=== PATIENT | female | born 1935 | race American Indian/Alaskan Native ===

== ENCOUNTER 2017-01-01 15:19 | Emergency (ER) | payer MEDICARE ==
[2017-01-01 19:12] LABS: Basophils % (Auto) 0.9 % (0.0-1.8); Eosinophils % (Auto) 1.1 % (0.0-4.3); Hematocrit 32.5 % (30.3-42.9); Hemoglobin 10.1 gm/dl (10.1-14.3); Mean Corpuscular HGB Conc 31 % (30-34); Mean Corpuscular Hemoglobin 27 pg (28-32); Mean Corpuscular Volume 85 fl (79-97); Platelet Count 303 K/mm3 (140-440); Red Blood Count 3.82 M/mm3 (3.65-5.03); Red Cell Distribution Width 15.3 % (13.2-15.2); White Blood Count 5.5 K/mm3 (4.5-11.0)
[2017-01-01 19:35] LABS: Bacteria,Urine 1+ /HPF (Negative); Bilirubin,Urine NEG (Negative); Blood,Urine NEG (Negative); Ketones,Urine NEG (Negative); Leukocyte Esterase,Urine NEG (Negative); Mucus,Urine FEW /HPF; Nitrite,Urine NEG (Negative); Urobilinogen,Urine < 2.0 mg/dL (<2.0)
[2017-01-01 19:48] LABS: BUN/Creatinine Ratio 15.41; Calcium 9.6 mg/dL (8.4-10.2); Chloride 101.5 mmol/L (98-107); Potassium 4.2 mmol/L (3.6-5.0)
[2017-01-01 21:49] LABS: Albumin 4.1 g/dL (3.9-5); Albumin/Globulin Ratio 1.5 %; Bilirubin,Total 0.4 mg/dL (0.1-1.2); Calcium 9.6 mg/dL (8.4-10.2); Chloride 100.7 mmol/L (98-107); Potassium 4.2 mmol/L (3.6-5.0); Total Protein 6.8 g/dL (6.3-8.2)
[2017-01-01] MEDS ORDERED: ZOFRAN IV ONE (21:50)
[2017-01-01] MEDS ORDERED: NACL 0.9% 1000 ML 1,000 ML IV ONE (21:50)
--- NOTE | 2017-01-01 22:36 | Emergency Department Report ---
ED N/V/D HPI - General Chief complaint: Nausea/Vomiting/Diarrhea Stated complaint: NAUSEA/VOMITING Time Seen by Provider: 01/01/17 21:15 Source: patient Mode of arrival: Ambulatory Limitations: No Limitations - History of Present Illness Initial comments: 81 year female with a past medical history of gouty arthritis, diabetes, GERD, hypertension, elevated cholesterol, and chronic renal insufficiency presents to the hospital complaints of nausea and vomiting since this morning. Patient has had greater several episodes of nonbilious, nonbloody vomitus. Patient denies diarrhea, abdominal pain, chest pain, fever, melena, hematochezia, or hematemesis. Mild dysuria reported. Patient unable to eat or drink today due to symptoms. PMD Dr. Vega rim roller operator: Dr. Wilder - Related Data Home Medications Medication Instructions Recorded Confirmed Last Taken Cilostazol [Pletal] 100 mg PO BID 11/30/14 01/01/17 12/31/16 Doxazosin [Cardura] 4 mg PO QDAY 11/30/14 01/01/17 12/31/16 Meloxicam [Mobic] 15 mg PO QDAY 11/30/14 01/01/17 12/31/16 Pravastatin Sodium [Pravastatin] 80 mg PO QHS 11/30/14 01/01/17 12/31/16 Valsartan [Diovan] 320 mg PO QDAY 11/30/14 01/01/17 12/31/16 Verapamil ER [Calan SR] 240 mg PO QDAY 11/30/14 01/01/17 12/31/16 traMADol [Ultram 50 MG tab] 50 mg PO Q8H PRN 11/30/14 01/01/17 12/31/16 Previous Rx's Medication Instructions Recorded Last Taken Type Diazepam Tab [Valium] 2 mg PO TID PRN #10 tablet 11/30/14 12/31/16 Rx HYDROcodone/APAP 5-325 [[place] 1 - 2 each PO Q4-6H PRN #20 tablet 12/21/14 Rx 5-325 mg TAB] Ibuprofen [Motrin 800 MG tab] 800 mg PO Q8HR PRN #20 tablet 12/21/14 12/31/16 Rx Ondansetron [Zofran Odt] 4 mg PO Q8HR PRN #20 tab.rapdis 01/01/17 Unknown Rx Allergies Allergy/AdvReac Type Severity Reaction Status Date / Time No Known Allergies Allergy Verified 01/01/17 22:10 ED Review of Systems ROS: Stated complaint: NAUSEA/VOMITING Other details as noted in HPI Comment: All other systems reviewed and negative Other: Constitutional: No fevers chills Eyes: No eye pain visual changes ENT: No ear pain or throat pain Neck: Denies pain Respiratory: Denies cough wheezing shortness of breath Cardiovascular: Denies chest pain, palpitations, syncope GI: Denies abdominal pain, diarrhea : mild dysuria Musculoskeletal: Denies back pain Skin: Denies rash, lesions, erythema Neurologic: Denies headache, numbness, weakness Psychiatric: Denies suicidal ideation, hallucinations ED Past Medical Hx - Past Medical History Previous Medical History?: Yes Hx Hypertension: Yes (30YRS) Hx Diabetes: Yes Hx GERD: Yes Hx Renal Disease: Yes (renal insufficiency) Hx Arthritis: Yes Additional medical history: gout, high cholesterol - Surgical History Past Surgical History?: Yes Additional Surgical History: 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 - Social History Smoking Status: Never Smoker Substance Use Type: None - Medications Home Medications: Home Medications Medication Instructions Recorded Confirmed Last Taken Type Cilostazol [Pletal] 100 mg PO BID 11/30/14 01/01/17 12/31/16 History Diazepam Tab [Valium] 2 mg PO TID PRN #10 tablet 11/30/14 01/01/17 12/31/16 Rx Doxazosin [Cardura] 4 mg PO QDAY 11/30/14 01/01/17 12/31/16 History Meloxicam [Mobic] 15 mg PO QDAY 11/30/14 01/01/17 12/31/16 History Pravastatin Sodium [Pravastatin] 80 mg PO QHS 11/30/14 01/01/17 12/31/16 History Valsartan [Diovan] 320 mg PO QDAY 11/30/14 01/01/17 12/31/16 History Verapamil ER [Calan SR] 240 mg PO QDAY 11/30/14 01/01/17 12/31/16 History traMADol [Ultram 50 MG tab] 50 mg PO Q8H PRN 11/30/14 01/01/17 12/31/16 History HYDROcodone/APAP 5-325 [[place] 1 - 2 each PO Q4-6H PRN #20 tablet 12/21/1412/31/16 Rx 5-325 mg TAB] Ibuprofen [Motrin 800 MG tab] 800 mg PO Q8HR PRN #20 tablet 12/21/14 01/01/17 Rx Ondansetron [Zofran Odt] 4 mg PO Q8HR PRN #20 tab.rapdis 01/01/17 Unknown Rx ED Physical Exam - General Limitations: No Limitations - Other Other exam information: General: No limitations, patient is alert in no acute distress Head exam: Atraumatic, normocephalic Eyes exam: Normal appearance, pupils equal reactive to light, extraocular movements intact ENT: Moist mucous membrane, normal oropharynx Neck exam: Normal inspection, full range of motion, no meningismus nontender Respiratory exam: Clear to auscultation bilateral, no wheezes, rales, crackles Cardiovascular: Normal rate and rhythm, normal heart sounds Abdomen: Soft, nondistended, and nontender, with normal bowel sounds, no rebound, or guarding Extremity: Full range of motion normal inspection no deformity Back: Normal Inspection, full range of motion, no tenderness Neurologic: Alert, oriented x3, cranial nerves intact, no motor or sensory deficit Psychiatric: normal affect, normal mood Skin: Warm, dry, intact ED Course Vital Signs 01/01/17 01/01/17 01/01/17 18:39 22:00 23:00 Temperature 98.3 F Pulse Rate 76 62 96 H Respiratory 16 18 16 Rate Blood Pressure 142/76 Blood Pressure 135/62 164/74 [Right] O2 Sat by Pulse 99 100 98 Oximetry - Reevaluation(s) Reevaluation #1: 01/02/17 00:12 Patient tolerated by mouth intake. - Consultations Consultation #1: 01/01/17 23:01 Case discussed with rim roller operator Dr [place] partner of Dr. Wilder. If patient' s symptoms improve will be discharged with copy of labs for f/u ED Medical Decision Making - Lab Data Result diagrams: 01/01/17 18:48 01/01/17 18:48 Lab Results 01/01/17 01/01/17 01/01/17 Range/Units 18:48 18:48 18:48 WBC 5.5 (4.5-11.0) K/mm3 RBC 3.82 (3.65-5.03) M/mm3 Hgb 10.1 (10.1-14.3) gm/dl Hct 32.5 (30.3-42.9) % MCV 85 (79-97) fl MCH 27 L (28-32) pg MCHC 31 (30-34) % RDW 15.3 H (13.2-15.2) % Plt Count 303 (140-440) K/mm3 Lymph % (Auto) 18.8 (13.4-35.0) % Park % (Auto) 13.8 H (0.0-7.3) % Eos % (Auto) 1.1 (0.0-4.3) % Baso % (Auto) 0.9 (0.0-1.8) % Lymph # 1.0 L (1.2-5.4) K/mm3 Park # 0.8 (0.0-0.8) K/mm3 Eos # 0.1 (0.0-0.4) K/mm3 Baso # 0.1 (0.0-0.1) K/mm3 Seg Neutrophils % 65.4 (40.0-70.0) % Seg Neutrophils # 3.6 (1.8-7.7) K/mm3 Sodium 142 141 (137-145) mmol/L Potassium 4.2 4.2 (3.6-5.0) mmol/L Chloride 101.5 100.7 (98-107) mmol/L Carbon Dioxide 22 20 L (22-30) mmol/L Anion Gap 23 25 mmol/L BUN 37 H 36 H (7-17) mg/dL Creatinine 2.4 H 2.4 H (0.7-1.2) mg/dL Estimated GFR 23 23 ml/min BUN/Creatinine Ratio 15.41 15.00 % Glucose 107 H 106 H (65-100) mg/dL Calcium 9.6 9.6 (8.4-10.2) mg/dL Total Bilirubin 0.40 (0.1-1.2) mg/dL AST 14 (5-40) units/L ALT 6 L (7-56) units/L Alkaline Phosphatase 113 (35-129) units/L Total Creatine Kinase (30-135) units/L CK-MB (CK-2) (0.0-4.0) ng/mL CK-MB (CK-2) Rel Index (0-4) Troponin T (0.00-0.029) ng/mL Total Protein 6.8 (6.3-8.2) g/dL Albumin 4.1 (3.9-5) g/dL Albumin/Globulin Ratio 1.5 % Lipase 25 (13-60) units/L Urine Color (Yellow) Urine Turbidity (Clear) Urine pH (5.0-7.0) Ur Specific [place] (1.003-1.030) Urine Protein (Negative) mg/dL Urine Glucose (UA) (Negative) mg/dL Urine Ketones (Negative) mg/dL Urine Blood (Negative) Urine Nitrite (Negative) Urine Bilirubin (Negative) Urine Urobilinogen (<2.0) mg/dL Ur Leukocyte Esterase (Negative) Urine WBC (Auto) (0.0-6.0) /HPF Urine RBC (Auto) (0.0-6.0) /HPF U Epithel Cells (Auto) (0-13.0) /HPF Urine Bacteria (Auto) (Negative) /HPF Urine Mucus /HPF 01/01/17 01/01/17 Range/Units 18:48 19:07 WBC (4.5-11.0) K/mm3 RBC (3.65-5.03) M/mm3 Hgb (10.1-14.3) gm/dl Hct (30.3-42.9) % MCV (79-97) fl MCH (28-32) pg MCHC (30-34) % RDW (13.2-15.2) % Plt Count (140-440) K/mm3 Lymph % (Auto) (13.4-35.0) % Park % (Auto) (0.0-7.3) % Eos % (Auto) (0.0-4.3) % Baso % (Auto) (0.0-1.8) % Lymph # (1.2-5.4) K/mm3 Park # (0.0-0.8) K/mm3 Eos # (0.0-0.4) K/mm3 Baso # (0.0-0.1) K/mm3 Seg Neutrophils % (40.0-70.0) % Seg Neutrophils # (1.8-7.7) K/mm3 Sodium (137-145) mmol/L Potassium (3.6-5.0) mmol/L Chloride (98-107) mmol/L Carbon Dioxide (22-30) mmol/L Anion Gap mmol/L BUN (7-17) mg/dL Creatinine (0.7-1.2) mg/dL Estimated GFR ml/min BUN/Creatinine Ratio % Glucose (65-100) mg/dL Calcium (8.4-10.2) mg/dL Total Bilirubin (0.1-1.2) mg/dL AST (5-40) units/L ALT (7-56) units/L Alkaline Phosphatase (35-129) units/L Total Creatine Kinase 80 (30-135) units/L CK-MB (CK-2) 2.0 (0.0-4.0) ng/mL CK-MB (CK-2) Rel Index 2.5 (0-4) Troponin T < 0.010 (0.00-0.029) ng/mL Total Protein (6.3-8.2) g/dL Albumin (3.9-5) g/dL Albumin/Globulin Ratio % Lipase (13-60) units/L Urine Color Yellow (Yellow) Urine Turbidity Clear (Clear) Urine pH 5.0 (5.0-7.0) Ur Specific [place] 1.012 (1.003-1.030) Urine Protein 100 mg/dl (Negative) mg/dL Urine Glucose (UA) Neg (Negative) mg/dL Urine Ketones Neg (Negative) mg/dL Urine Blood Neg (Negative) Urine Nitrite Neg (Negative) Urine Bilirubin Neg (Negative) Urine Urobilinogen < 2.0 (<2.0) mg/dL Ur Leukocyte Esterase Neg (Negative) Urine WBC (Auto) 1.0 (0.0-6.0) /HPF Urine RBC (Auto) 2.0 (0.0-6.0) /HPF U Epithel Cells (Auto) 2.0 (0-13.0) /HPF Urine Bacteria (Auto) 1+ (Negative) /HPF Urine Mucus Few /HPF - EKG Data -: EKG Interpreted by Me (sinus rate 71 right bundle branch block, septal infarct age indeterminate) - EKG Data When compared to previous EKG there are: previous EKG unavailable - Medical Decision Making Patient has chronic renal insufficiency. Other there maysee labs and UA are unremarkable. Patient tolerating by mouth intake after receiving 1 dose of Zofran and no vomiting in the department. She feels better after receiving 1 L of normal saline. She'll be discharged home with outpatient PMD and nephrology follow-up. She was provided a copy of labs to take to her doctor - Differential Diagnosis gastritis, pancreatitis, cholecystitis, UTI, MD, dehydration Critical Care Time: No Critical care attestation.: If time is entered above; I have spent that time in minutes in the direct care of this critically ill patient, excluding procedure time. ED Disposition Clinical Impression: Vomiting, HTN (hypertension), Chronic renal insufficiency Disposition: TO HOME OR SELFCARE Is pt being admited?: No Does the pt Need Aspirin: No Condition: Stable Instructions: Acute Nausea and Vomiting (ED), Hypertension (ED), Impaired Kidney Function (ED) Additional Instructions: Take the medications as prescribed. To the copy for the last provided to your primary care doctor in kidney specialist. Return if symptoms worsen. Prescriptions: Ondansetron [Zofran Odt] 4 mg PO Q8HR PRN #20 tab.rapdis PRN Reason: Nausea And Vomiting Referrals: PRIMARY CARE, [Primary Care Provider] - 3-5 Days KLUWANT WILDER MD [Staff Physician] - 3-5 Days (rim roller operator) Time of Disposition: 00:13
[2017-01-01 22:58] LABS: Creatine Kinase 80 units/L (30-135)
[2017-01-02 00:34] VITALS: BP 150/61
== END 2017-01-02 00:35 | disposition home or self-care (01) ==
LOC: ED 15:19
DX: R11.2 Nausea with vomiting, unspecified (principal); E11.22 Type 2 diabetes mellitus with diabetic chronic kidney disease; I12.9 Hypertensive chronic kidney disease with stage 1 through stage 4 chronic kidney disease, or unspecified chronic kidney disease; N18.9 Chronic kidney disease, unspecified; K21.9 Gastro-esophageal reflux disease without esophagitis; M19.90 Unspecified osteoarthritis, unspecified site; M10.9 Gout, unspecified; E78.00 Pure hypercholesterolemia, unspecified
CPT/HCPCS: 36415; 80048; 80053; 81001; 82550; 82553; 83690; 84484; 85025; 93005; 93010; 96361; 96374; 99284; J2405; J7030

== ENCOUNTER 2017-06-06 14:50 | Emergency (ER) | payer MEDICARE ==
[2017-06-06 15:34] VITALS: BP 173/81
[2017-06-06] MEDS ORDERED: ULTRAM PO ONE (16:32)
--- NOTE | 2017-06-06 16:32 | Emergency Department Report ---
Blank Doc - Documentation Documentation: Patient is a 81-year-old asthmatic female past history of significant for arthritis with presenting with left hip pain. Patient states that she did not fall. Pain is been there for approximately 2 days this stop her from being able to walk well. Patient denies any rash in this area. X-ray of the left hip will be performed. She'll be reassessed.
--- NOTE | 2017-06-06 17:42 | Emergency Department Report ---
HPI - General Chief Complaint: Extremity Problem,Nontraumatic Time Seen by Provider: 06/06/17 16:28 - HPI HPI: Patient is a 81-year-old asthmatic female past history of significant for arthritis with presenting with left hip pain. Patient states that she did not fall. Pain is been there for approximately 2 days this stop her from being able to walk well. Patient denies any rash in this area. 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 - Social History Smoking Status: Never Smoker Substance Use Type: None - Medications Home Medications: Home Medications Medication Instructions Recorded Confirmed Last Taken Type Cilostazol [Pletal] 100 mg PO BID 11/30/14 01/01/17 12/31/16 History Diazepam Tab [Valium] 2 mg PO TID PRN #10 tablet 11/30/14 01/01/17 12/31/16 Rx Doxazosin [Cardura] 4 mg PO QDAY 11/30/14 01/01/17 12/31/16 History Pravastatin Sodium [Pravastatin] 80 mg PO QHS 11/30/14 01/01/17 12/31/16 History Valsartan [Diovan] 320 mg PO QDAY 11/30/14 01/01/17 12/31/16 History Verapamil ER [[place]an SR] 240 mg PO QDAY 11/30/14 01/01/17 12/31/16 History HYDROcodone/APAP 5-325 [[place] 1 - 2 each PO Q4-6H PRN #20 tablet 12/21/1412/31/16 Rx 5-325 mg TAB] Ibuprofen [Motrin 800 MG tab] 800 mg PO Q8HR PRN #20 tablet 12/21/14 01/01/17 Rx Ondansetron [Zofran Odt] 4 mg PO Q8HR PRN #20 tab.rapdis 01/01/17 Unknown Rx Meloxicam [Mobic] 15 mg PO QDAY #20 tablet 06/06/17 Unknown Rx traMADol [Ultram 50 MG tab] 50 mg PO Q8H PRN #20 tablet 06/06/17 Unknown Rx ED Review of Systems ROS: Stated complaint: L HIP PAIN Other details as noted in HPI Constitutional: denies: chills, fever Eyes: denies: eye pain, eye discharge, vision change ENT: denies: ear pain, throat pain Respiratory: denies: cough, shortness of breath, wheezing Cardiovascular: denies: chest pain, palpitations Endocrine: no symptoms reported Gastrointestinal: denies: abdominal pain, nausea, diarrhea Genitourinary: denies: urgency, dysuria, discharge Musculoskeletal: denies: back pain, joint swelling, arthralgia Skin: denies: rash, lesions Neurological: denies: headache, weakness, paresthesias Psychiatric: denies: anxiety, depression Hematological/Lymphatic: denies: easy bleeding, easy bruising Physical Exam - Physical Exam Vital Signs: Vital Signs 06/06/17 15:28 Temperature 98.5 F Pulse Rate 89 Respiratory 16 Rate Blood Pressure 173/81 O2 Sat by Pulse 99 Oximetry Physical Exam: GENERAL: Alert and oriented x3, no apparent distress, Normal Gait, atraumatic. HEAD: Head is normocephalic and a-traumatic. LUNGS: Symetrical with respiration, No wheezing, no rales or crackles, CTAB. HEART: S1, S2 present, regular rate and rhythm without murmur, no rubs, no gallops. Non tender to palpation ABDOMEN: No organomegaly was noted,Positive bowel sounds, soft, and non- distended. . Nontender to palpation on all Quadrants, NO CVA tenderness. BACK: Full range of motion, no spinal tenderness, nontender to palpation. EXTREMITIES/MUSCULOSKELETAL: No cyanosis, clubbing, rash, lesions or edema. Full ROM bilaterally. UE/LE Pulses 2+ bilaterally. LE and UE 5+ strength bilaterally, mildly tender to palpation at the hip, no swelling, no lesions, no ecchymosis, no erythema. NEUROLOGIC: The patient is cooperative with no focal neurologic deficits. Normal speech. Normal sensation in bilateral upper and lower extremities, No loss of sensation, SKIN: Warm and dry, No lesions, No ulceration or induration present. ED Course Vital Signs 06/06/17 15:28 Temperature 98.5 F Pulse Rate 89 Respiratory 16 Rate Blood Pressure 173/81 O2 Sat by Pulse 99 Oximetry ED Medical Decision Making - Radiology Data Radiology results: report reviewed, image reviewed FINAL REPORT PROCEDURE: XR HIP 2-3V LT AP pelvis and left hip series TECHNIQUE: LEFT hip radiographs, 2 views each, including AP view of the pelvis. HISTORY: hip pain COMPARISON: No prior studies are available for comparison. FINDINGS: No fracture or dislocation visualized. Joint space narrowing and sclerosis of the opposing articular surfaces as well as subchondral cyst formation and marginal osteophyte formation seen in both hips, the left side more dense than the right consistent with advanced osteoarthritis, severe on the left and moderate on the right. Moderate degenerative changes are seen throughout the visualized portions of the lumbar spine. Vascular calcifications visualized projecting over the pelvis. Moderate osteoarthritis also seen in the symphysis pubis, mild osteoarthritic changes in the SI joints bilaterally. IMPRESSION: No evidence of fracture or dislocation. Severe osteoarthritis left hip, moderate osteoarthritis right hip. Mild to moderate degenerative changes symphysis pubis and SI joints, moderate degenerative changes lumbar spine. Transcribed By: DFN Dictated By: CHRIS BOYER MD Electronically Authenticated By: CHRIS BOYER MD Signed Date/Time: 06/06/17 1286 - Medical Decision Making 81-year-old female presents with arthritis of the hip ED Course: Patient received pain medication in ED X-rays of the hip taken. X-ray shows arthritis of the hip. I discussed his findings with the patient I discussed with patient that I will give her some pain control for home. I discussed the follow up with her primary care physician and if symptoms worsen also orthopedic doctor. Vital signs are normal patient is in no acute distress. Patient able to ambulate with her walker appropriately. Critical care attestation.: If time is entered above; I have spent that time in minutes in the direct care of this critically ill patient, excluding procedure time. ED Disposition Clinical Impression: Chronic left hip pain Osteoarthritis of hip Qualifiers: Osteoarthritis type: unspecified Laterality: left Qualified Code(s): M16.12 - Unilateral primary osteoarthritis, left hip Disposition: TO HOME OR SELFCARE Is pt being admited?: No Does the pt Need Aspirin: No Condition: Stable Instructions: Osteoarthritis (ED), Lumbar Radiculopathy (ED), Arthralgia (ED), Degenerative Disc Disease (ED) Additional Instructions: Make sure to follow up with the primary care physician as discussed. Take all your medications as you've been prescribed. If you have any worsening symptoms or develop new symptoms please return to ED immediately. Prescriptions: Meloxicam [Mobic] 15 mg PO QDAY #20 tablet traMADol [Ultram 50 MG tab] 50 mg PO Q8H PRN #20 tablet PRN Reason: Pain Referrals: PRIMARY CAREMD [Primary Care Provider] - 3-[address] [facility] [Outside] - 3[facility] Days [facility] - 3-5 Days BRANDT MACKEY MD [Staff Physician] - 3-5 Days (follow up with orthopedic physician) Forms: Accompanied Note, Work/School Release Form(ED) Time of Disposition: 18:11
--- NOTE | 2017-06-06 18:00 | XRay Report ---
FINAL REPORT PROCEDURE: XR HIP 2-3V LT AP pelvis and left hip series TECHNIQUE: LEFT hip radiographs, 2 views each, including AP view of the pelvis. HISTORY: hip pain COMPARISON: No prior studies are available for comparison. FINDINGS: No fracture or dislocation visualized. Joint space narrowing and sclerosis of the opposing articular surfaces as well as subchondral cyst formation and marginal osteophyte formation seen in both hips, the left side more dense than the right consistent with advanced osteoarthritis, severe on the left and moderate on the right. Moderate degenerative changes are seen throughout the visualized portions of the lumbar spine. Vascular calcifications visualized projecting over the pelvis. Moderate osteoarthritis also seen in the symphysis pubis, mild osteoarthritic changes in the SI joints bilaterally. IMPRESSION: No evidence of fracture or dislocation. Severe osteoarthritis left hip, moderate osteoarthritis right hip. Mild to moderate degenerative changes symphysis pubis and SI joints, moderate degenerative changes lumbar spine.
== END 2017-06-06 18:35 | disposition home or self-care (01) ==
LOC: ED 14:50
DX: M25.552 Pain in left hip (principal); I10 Essential (primary) hypertension; E11.9 Type 2 diabetes mellitus without complications; K21.9 Gastro-esophageal reflux disease without esophagitis; M19.90 Unspecified osteoarthritis, unspecified site; M10.9 Gout, unspecified; E78.00 Pure hypercholesterolemia, unspecified
CPT/HCPCS: 99283